=== PATIENT | female | born 1990 | race Caucasian/White ===

== ENCOUNTER 2019-08-24 09:46 | Day surgery (SDC) | payer OTHER ==
[2019-08-24] MEDS ORDERED: ROCURONIUM 50 MG/5 ML VIAL IVP ONE (09:47)
[2019-08-24] MEDS ORDERED: KETOROLAC 30 MG/ML VIAL IVP ONE (09:47)
[2019-08-24] MEDS ORDERED: ONDANSETRON 4 MG/2 ML VIAL IVP ONE (09:47)
[2019-08-24] MEDS ORDERED: DEXAMETHASONE 4 MG/ML VIAL IVP ONE (09:47)
[2019-08-24] MEDS ORDERED: fentaNYL 100 MCG/2 ML VIAL IVP ONE (09:47)
[2019-08-24] MEDS ORDERED: LIDOCAINE-MPF 2% 5 ML VIAL IM ONE (09:47)
[2019-08-24] MEDS ORDERED: PROPOFOL 200 MG/20 ML VIAL IVP ONE (09:47)
[2019-08-24] MEDS ORDERED: MIDAZOLAM 2 MG/2 ML VIAL IVP ONE (09:47)
[2019-08-24] MEDS ORDERED: SEVOFLURANE 250 ML LIQUID INH ONE (09:47)
[2019-08-24 10:12] LABS: HCG UR QUAL NEGATIVE
[2019-08-24] MEDS ORDERED: LACTATED RINGERS 1,000 ML IV ONE ×2 (10:37→14:17)
--- NOTE | 2019-08-24 11:38 | ANESTHESIA PROCEDURE NOTE ---
Diagnosis: Desires permanent sterilization Procedure: Laparoscopic salpingectomy Height and Weight: Height 5 ft 6 in Weight (kg) 72 kg Vital Signs: Temp Pulse Resp BP Pulse Ox 36.5 C 88 18 137/88 H 100 08/24/19 09:59 08/24/19 09:59 08/24/19 09:59 08/24/19 09:59 08/24/19 09:59 Allergies amoxicillin [Amoxicillin] Allergy (Severe, Verified 08/13/19 14:34) Hives Sulfa (Sulfonamide Antibiotics) Allergy (Severe, Verified 08/13/19 14:34) Hives
[2019-08-24] MEDS ORDERED: SCOPOLAMINE PATCH TOP ONE (11:39)
--- NOTE | 2019-08-24 11:42 | ANESTHESIA ---
Pre-Anesthesia VS, & Labs - Diagnosis Desires permananet sterilization - Procedure Lap salpingectomy Vital Signs: Temp Pulse Resp BP Pulse Ox 36.5 C 88 18 137/88 H 100 08/24/19 09:59 08/24/19 09:59 08/24/19 09:59 08/24/19 09:59 08/24/19 09:59 Height 5 ft 6 in Weight (kg) 72 kg - NPO >8 hours - Is Patient ?: No - Lab Results Lab results reviewed: No Home Medications and Allergies Home Medications: Ambulatory Orders Ibuprofen [Motrin] 600 mg PO Q6H PRN 08/13/19 Ibuprofen [Motrin] 600 mg PO Q6H PRN 08/13/19 Allergies/Adverse Reactions: Allergies Allergy/AdvReac Type Severity Reaction Status Date / Time amoxicillin [Amoxicillin] Allergy Severe Hives Verified 08/13/19 14:34 Sulfa (Sulfonamide Allergy Severe Hives Verified 08/13/19 14:34 Antibiotics) Anes History & Medical History - Anesthetic History Anesthesia Complications: reports: No previous complications Family history of Anesthesia Complications: Denies Family history of Malignant Hyperthermia: Denies - Medical History Cardiovascular: reports: Hypertension Pulmonary: reports: None Gastrointestinal: reports: None Urinary: reports: None Neuro: reports: None Musculoskeletal: reports: None Endocrine/Autoimmune: reports: None Blood Disorders: reports: None Skin: reports: None Smoking Status: Never smoker - Surgical History Eyes Ears Nose Throat (EENT): Tonsil/Adenoidectomy Exam General: Alert, Oriented x3, Cooperative Dental: TMJ Mouth Opening: Greater than 4 Fingerbreadths Neck Mobility: Normal Mallampati classification: II Thyromental Distance: greater than 6 cm Respiratory: Lungs clear Cardiovascular: Regular rate Mental/Cognitive Status: Alert/Oriented X3 Cognitive Status: Within normal limits Plan Anesthesia Type: General Consent for Procedure(s) Verified and Reviewed: Yes Code Status: Attempt Resuscitation ASA classification: 2-Mild systemic disease Is this case an emergency?: No
[2019-08-24] MEDS ORDERED: BUPIVACAINE 0.25% PF 30 ML VIAL ONE (13:29)
[2019-08-24] MEDS ORDERED: BUPIVACAINE 0.25% PF 30 ML VIAL SUBQ ONE ×2 (15:08)
[2019-08-24] MEDS ORDERED: SUGAMMADEX 200 MG/2 ML VIAL IVP ONE (15:13)
[2019-08-24] MEDS ORDERED: HYDROcod/ACETAM 10 MG/325 MG TABLET PO PRN (15:28)
--- NOTE | 2019-08-24 15:33 | OPERATIVE REPORT ---
Operative Report - General Procedure Date: 08/24/19 Planned Procedure: Laparoscopic bilateral salpingectomy Removal of Mirena IUD Pre-Op Diagnosis: Undesired fertility Procedure Performed: Same as above Post Op Diagnosis: Same as above - Procedure Note Primary Surgeon: Derrick Secondary Surgeon: Meliza Anesthesia Provider: Bacilio Anesthesia Technique: General ET tube Pathology: Portions of both fallopian tubes Estimated Blood Loss (mL): 5 Indications: Desire for permanent contraception Findings: Exam under anesthesia revealed a normal-sized retroverted uterus and normal adnexa. The IUD strings were visible. Operative findings: The uterus, tubes, and ovaries were within normal limits. There were no abnormal findings in the anterior or posterior cul-de-sacs. The appendix was searched for but not found. The liver edge and gallbladder appeared normal. - Other Other Information/Narrative: Procedure: The patient was taken to the operating room, where general endotracheal anesthesia was administered without difficulty. She was then positioned in the low dorsal lithotomy position with her lower extremities in Yellow Fin stirrups. Vagina, perineum, and abdomen were then prepped and draped in a sterile fashion. Procedure Time-Out was then performed. A sterile bivalve speculum was then inserted into the vagina. The Mirena IUD was removed. A tenaculum was placed at the anterior lip of the cervix, and a HUMI uterine manipulator was gently advanced and the balloon inflated. The tenaculum and speculum were then removed from the vagina. Attention was then turned to the laparoscopy. 0.5% Marcaine was injected infraumbilically, then a 7-mm horizontal skin incision made. A 0-degree, 5 mm laparoscope was inserted into a 5 mm trocar and passed through the anterior layers of the abdominal wall using Optiview technique. The abdomen was visualized, then 2 additional ports placed at the right and left lower quadrants, first instilling local anesthetic, then placing 5 mm ports. The patient was placed into Trendelenberg and bowel swept out of the cul-de-sac. The right, distal fallopian tube was then grasped and pulled anteriorly and superiorly. The tubo-ovarian ligament was then crossclamped, cauterized, and cut using the Ligasure, then the mesosalpinx was crossclamped, cauterized, and cut, completely the right fallopian tube from the uterus at the cornual region. The right fallopian tube was then removed from the abdomen. The left distal fallopian tube was then grasped and pulled anteriorly and superiorly. The tubo-ovarian pedicle was then crossclamped, cauterized, and cut, the distal left fallopian tube from the left ovary. The mesosalpinx was then serially cauterized and cut until the cornual region was reached, then the fallopian tube was crossclamped cauterized and cut. The surgical sites appeared hemostatic. The left fallopian tube was removed from the abdomen. At this point the laparoscopy was deemed complete, and all trochars were removed from the abdomen. The carbon dioxide gas was then allowed to escape. The incisions were then closed with 4-0 Monocryl in a subcuticular fashion followed by Dermabond skin adhesive. The tenaculum was then removed from the posterior lip of the cervix. The sterile bivalve speculum was then reinserted to ensure that the tenaculum sites were hemostatic. No bleeding was noted, and the speculum was then removed. At this point the procedure was deemed complete. The patient was then replaced supine, awakened, extubated, and transferred to the PACU in stable condition
[2019-08-24 16:19] VITALS: BP 109/76
== END 2019-08-24 09:47 | disposition home or self-care (01) ==
LOC: SDS 09:46
PROVIDERS: ATTEND Obstetrics & Gynecology
PROC: 0UT74ZZ Resection of Bilateral Fallopian Tubes, Percutaneous Endoscopic Approach (ICD-10-PCS; principal; 2019-08-24 11:30)
DX: Z30.2 Encounter for sterilization (principal); F17.210 Nicotine dependence, cigarettes, uncomplicated
CPT/HCPCS: 81025; 88302